=== PATIENT | female | born 2000 | race Caucasian/White ===

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

== ENCOUNTER 2020-02-06 20:19 | Emergency (ER) | payer OTHER, SELFPAY ==
[2020-02-06 20:23] VITALS: BP 128/78; PULSE 91; RESP 14; TEMP 37.1; O2SAT 99; BMI 21.4
--- NOTE | 2020-02-06 20:28 | DI.RAD.S_ITS ---
PROCEDURE: XR CHEST 1V INDICATIONS: Chest pain TECHNIQUE: One view of the chest was acquired. COMPARISON: None. FINDINGS: Surgical changes and devices: None. Lungs and pleura: Lungs are clear. No pleural effusions or pneumothorax. Mediastinum: Mediastinal contours appear normal. Heart size is normal. Bones and chest wall: No suspicious bony lesions. Overlying soft tissues appear unremarkable. IMPRESSION: No acute cardiopulmonary process demonstrated radiographically. Dictated by: Silvino Zaragoza M.D. on 02/06/2020 at 21:31 Approved by: Silvino Zaragoza M.D. on 02/06/2020 at 21:31
[2020-02-06 20:35] LABS: Add Manual Diff / Slide Review NO; Basophils Absolute Auto 0 /uL (0-100); Basophils Percent Auto 0.6 % (0-2); Eosinophils Absolute Auto 100 /uL (0-450); Eosinophils Percent Auto 1.1 % (2-4); Hematocrit 37.1 % (36-46); Hemoglobin 12.5 g/dL (12.0-16.0); Lymphocytes Absolute Auto 3300 /uL (1100-4500); Lymphocytes Percent Auto 41.1 % (25-40); Mean Corpuscular HGB Conc 33.6 % (30-36); Mean Corpuscular Hemoglobin 28.3 PG (26-34); Mean Corpuscular Volume 84.3 fL (80-100); Monocytes Absolute Auto 600 /uL (0-900); Monocytes Percent Auto 7.1 % (3-14); Neutrophils Absolute Auto 4100 /uL (1500-7000); Neutrophils Percent Auto 50.1 % (50-75); Platelet Count 291 X10^3/uL (150-400); Red Cell Distribution Width 12.6 % (11.6-14.8); White Blood Cell Count 8.1 X10^3/uL (4.5-11.0)
[2020-02-06 20:45] LABS: Prothrombin Time 11.3 SECONDS (10.1-12.7)
--- NOTE | 2020-02-06 20:46 | ED.CHESTPAIN ---
HPI - Chest Pain General Chief Complaint: Chest Pain Stated Complaint: CHEST PAIN, HEART PAIN, SOB Time Seen by Provider: 02/06/20 20:45 Source: patient Mode of arrival: Ambulatory Limitations: no limitations History of Present Illness HPI narrative: 19-year-old woman with medical history significant for oral contraceptives and anxiety with panic attacks presents with chest pain. The pain has been developing all day long. She does not describe any new physical activities that would have increased musculoskeletal pain. She 1st noticed it this morning when she woke up and by L this evening she found that it had moved from her right chest over to her left chest felt like significant pressure and then caused her significant anxiety which than exacerbated all of the symptoms and she comes in for further evaluation. Once in the emergency room she is much calmer, clearly no hyperventilation and no panic attack. She is feeling better and states that her chest pain currently is at 4/10 (at its max it was 9/10). She is not dyspneic, diaphoretic, experiencing any palpitations, no fevers or cough, no lower extremity edema. She has never experienced chest pain like this previously Related Data Home Medications Medication Instructions Recorded Confirmed desogestrel 0.15 mg-ethinyl 1 tab PO DAILY 11/16/19 11/16/19 estradiol 0.03 mg tablet Allergies Allergy/AdvReac Type Severity Reaction Status Date / Time No Known Drug Allergies Allergy Verified 02/06/20 20:28 Review of Systems Review of Systems Narrative: Pertinent positive and negative findings as per HPI Remainder of review of systems is otherwise unremarkable for Constitutional: Fevers, chills, weakness ENT: No sore throat, neck pain, ear pain GI: Nausea, vomiting, diarrhea, change in bowel habits, black or bloody stools : Dysuria, hematuria, flank pain MS: Muscle weakness, numbness, joint swelling or warmth Skin: Rashes, nonhealing lesions Neuro: Syncope, dizziness, tingling Patient History Medical History Anxiety (Acute) Social History Smoking Status: Never smoker Smoking Status: Never smoker alcohol intake frequency: holidays/special occasions only Substance Use Type: does not use Exam Narrative Exam Narrative: General: Healthy appearing, in no acute distress. Able to give a complete and coherent history. Well-nourished well-developed HEENT: Moist mucous membranes, normal sclera with reactive pupils, Neck: No cervical adenopathy, supple Respiratory: Lungs are clear to auscultation, no wheezing no rales no rhonchi. Full and symmetrical air movement Cardiac: Regular rate and rhythm no murmurs no bruits Chest: Tenderness along costochondral borders bilaterally with pain reproduced on lateral compression of the chest wall Abdomen: Soft nontender good bowel tones, no flank pain Skin: Warm and dry, no rashes Neurologic: Grossly neurologically intact with no obvious asymmetries or abnormalities Extremities: No trauma, well perfused Psych: Cooperative, appropriate insight and affect Initial Vital Signs Initial Vital Signs: Vital Signs Temperature 98.8 F 02/06/20 20:23 Pulse Rate 91 H 02/06/20 20:23 Respiratory Rate 14 02/06/20 20:23 Blood Pressure 128/78 02/06/20 20:23 Pulse Oximetry 99 02/06/20 20:23 Course Orders Ordered: ED Orders 02/06/20 20:20 Complete Blood Count AUTO DIFF Stat Comprehensive Metabolic Panel Stat Lipase Stat Partial Thromboplastin Time Stat Prothrombin Time INR Stat Troponin & CK Cardiac Panel Stat 02/06/20 20:28 XR chest 1V Stat EKG-12 Lead Stat Discontinued Medications Ketorolac Tromethamine (Toradol) 15 mg IV NOW ONE Stop: 02/06/20 21:03 Last Admin: 02/06/20 21:22 Dose: 15 mg Documented by: CASSIDY Vital Signs Vital signs: Vital Signs - 8 hr 02/06/20 20:23 02/06/20 22:14 Temperature 98.8 F Pulse Rate 91 H 83 Respiratory Rate 14 Blood Pressure 128/78 118/77 Pulse Oximetry 99 99 MDM - Chest Pain Lab Data Attestation: I reviewed the patient's lab results. Result diagrams: 02/06/20 20:20 02/06/20 20:20 Labs: Lab Results 02/06/20 02/06/20 02/06/20 Range/Units 20:20 20:20 20:20 WBC 8.1 (4.5-11.0) X10^3/uL RBC 4.40 (4.0-5.2) X10^6/uL Hgb 12.5 (12.0-16.0) g/dL Hct 37.1 (36-46) % MCV 84.3 (80-100) fL MCH 28.3 (26-34) PG MCHC 33.6 (30-36) % RDW 12.6 (11.6-14.8) % Plt Count 291 (150-400) X10^3/uL Neut % (Auto) 50.1 (50-75) % Lymph % (Auto) 41.1 H (25-40) % [place] % (Auto) 7.1 (3-14) % Eos % (Auto) 1.1 L (2-4) % Baso % (Auto) 0.6 (0-2) % Neut # (Auto) 4100 (0676-0021) /uL Lymph # (Auto) 3300 (3520-8530) /uL [place] # (Auto) 600 (0-900) /uL Eos # (Auto) 100 (0-450) /uL Baso # (Auto) 0 (0-100) /uL PT 11.3 (10.1-12.7) SECONDS INR 1.0 (0.9-1.3) APTT 30 (26.4-36.2) SECONDS Sodium 137 (137-145) mmol/L Potassium 3.4 (3.4-5.1) mmol/L Chloride 105 (98-107) mmol/L Carbon Dioxide 26 (22-32) mmol/L BUN 10 (7-17) mg/dL Creatinine 0.71 (0.52-1.04) mg/dL Estimated GFR > 60.0 (>60) mL/min BUN/Creatinine Ratio 14.1 (6-22) Glucose 92 (70-100) mg/dL Calcium 9.7 (8.4-10.2) mg/dL Total Bilirubin 0.4 (0.2-1.3) mg/dL AST 26 (14-36) IU/L ALT 14 (<35) IU/L Alkaline Phosphatase 61 (38-126) U/L Total Creatine Kinase 54 (30-135) U/L CK-MB (CK-2) TNP CK-MB (CK-2) Rel Index TNP Troponin I < 0.012 (0.01-0.034) ng/mL Total Protein 7.5 (6.3-8.2) g/dL Albumin 4.5 (3.5-5.0) g/dL Globulin 3.0 (1.7-4.1) g/dL Albumin/Globulin Ratio 1.5 (1.0-2.8) Lipase 153 (23-300) U/L Point of Care Testing Test Results Negative Urine Dip Bedside Urine Glucose Negative Bedside Urine Bilirubin - Negative Bedside Urine Ketone - Negative Urine Specific [place] 1.015 Bedside Urine Occult Blood - Negative Bedside Urine pH 6.0 Bedside Urine Protein - Negative Bedside Urine Urobilinogen - Negative Bedside Urine Nitrite - Negative Bedside Urine Leukocytes + 70 Esterase Imaging Data Chest x-ray: Radiologist's Impression: IMPRESSION: No acute cardiopulmonary process demonstrated radiographically. Dictated by: Silvino Zaragoza M.D. on 02/06/2020 at 21:31 ECG Data Attestation: I personally reviewed and interpreted this ECG as follows: Interpretation: Sinus rhythm at 79 Normal axis, normal intervals No acute STT wave changes, no ischemia MDM Narrative Medical decision making narrative: Pain entirely controlled with Toradol. Labs are reassuring no evidence of acute coronary syndrome, pulmonary embolism, infection, pneumothorax or other life-threatening issues for her chest pain today. We had a nice discussion regarding anxiety and panic attacks. She is safe for home discharge at this time Discharge Plan Departure Patient Disposition: Home Clinical Impression: Costalchondritis, Anxiety Instructions: DI for Costochondritis Activity Restrictions/Additional Instructions: Thank you for coming in today Your lab work x-ray and EKG today were all very reassuring. There is no evidence of any life-threatening issue to cause your chest pain. I suspect that you do have costal chondritis. This is inflammation of the joints where the ribs supervisor in circuit testing to the breast bone. That is right where your tender. Using 400 mg of ibuprofen (2 [id number] pills) and 1 Tylenol every 6 hours can be very helpful in controlling pain. I wish you the very best Prescriptions: No Action desogestrel-ethinyl estradiol [Isibloom] 0.15-0.03 mg tablet 1 tab PO DAILY RF: 0
[2020-02-06 20:48] LABS: PTT Partial Thromboplastin Tim 30 SECONDS (26.4-36.2)
[2020-02-06 20:49] LABS: Alanine Aminotransferase 14 IU/L (<35); Albumin 4.5 g/dL (3.5-5.0); Albumin Globulin Ratio 1.5 (1.0-2.8); Alkaline Phosphatase 61 U/L (38-126); Aspartate Aminotransferase 26 IU/L (14-36); BUN Creatinine Ratio 14.1 (6-22); Bilirubin Total 0.4 mg/dL (0.2-1.3); Blood Urea Nitrogen 10 mg/dL (7-17); Calcium 9.7 mg/dL (8.4-10.2); Carbon Dioxide 26 mmol/L (22-32); Chloride 105 mmol/L (98-107); Creatine Kinase 54 U/L (30-135); Estimated Glomerular Filt Rate > 60.0 mL/min (>60); Glucose 92 mg/dL (70-100); HEMOLYSIS < 15 (0-50); Lipase 153 U/L (23-300); Potassium 3.4 mmol/L (3.4-5.1); Sodium 137 mmol/L (137-145); Total Protein 7.5 g/dL (6.3-8.2)
[2020-02-06 21:01] LABS: Troponin I < 0.012 ng/mL (0.01-0.034)
[2020-02-06] MEDS: KETOROLAC 60 MG/2 ML VIAL 15 MG IV (21:22)
[2020-02-06 22:14] VITALS: BP 118/77; PULSE 83; O2SAT 99
== END 2020-02-06 22:51 | disposition home or self-care (01) ==
PROVIDERS: Emergency Provider Emergency Medicine
DX: M94.0 Chondrocostal junction syndrome [Tietze] (principal); F41.0 Panic disorder [episodic paroxysmal anxiety]; R07.9 Chest pain, unspecified
CPT/HCPCS: 36415; 71045; 80053; 81003; 81025; 82550; 83690; 84484; 85025; 85610; 85730; 93005; 96374; 99284; J1885

== ENCOUNTER 2020-02-18 12:39 | Emergency (ER) | payer OTHER, SELFPAY ==
[2020-02-18 12:44] VITALS: BP 119/83; PULSE 78; RESP 20; TEMP 37.1; O2SAT 100; BMI 21.4
--- NOTE | 2020-02-18 12:50 | DI.RAD.S_ITS ---
PROCEDURE: XR CHEST 1V INDICATIONS: syncope TECHNIQUE: One view of the chest was acquired. COMPARISON: [facility], CR, XR CHEST 1V, 02/06/2020, 21:16. FINDINGS: Surgical changes and devices: None. Lungs and pleura: Lungs are clear. No pleural effusions or pneumothorax. Mediastinum: Mediastinal contours appear normal. Heart size is normal. Bones and chest wall: No suspicious bony lesions. Overlying soft tissues appear unremarkable. IMPRESSION: No acute cardiopulmonary disease. Dictated by: Sofy Price M.D. on 02/18/2020 at 12:10 Approved by: Sofy Price M.D. on 02/18/2020 at 12:11
--- NOTE | 2020-02-18 12:55 | PC.NURSE ---
Patient brought in by EMS. Patient reports fainted twice while at work. Initial time witness by a customer at work, and second happened shortly after while sitting in a chair. Patient reports nausea and weakness prior to fainting and short loss of consciousness. Patient denies any injuries sustained. Patient reports chest pain, however states this is not a new finding and was recently seen in this ED and was diagnosed with costochondritis. Patient states her chest pain is the same as when she came in for this and denies new onset of chest pain. Patient affirms continued dizziness and nausea.
--- NOTE | 2020-02-18 12:57 | ED_ITS ---
HPI - Syncope <SUSAN Caldwell - Last Filed: 02/18/20 16:36> General Chief Complaint: Syncope Stated Complaint: syncope Time Seen by Provider: 02/18/20 12:42 Source: patient and EMS Mode of arrival: EMS Limitations: no limitations History of Present Illness HPI narrative: 19yo female with a history of anxiety presents to the emergency department for 2 episodes of syncope. 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 She was then helped to sit on a chair where she then passed out for a few seconds again. Patient denies having breakfast this morning, states she was not drinking very much water. Patient denies hitting her head, she denies any neck pain, vision changes, fevers, abdominal pain, vomiting, diarrhea, vaginal discharge blood in stool, or any other concerns. Patient states she was seen on 02/06/20 and diagnosed with costochondritis, she states she has the similar chest pain and feels short of breath when she takes a deep breath. Related Data Home Medications Medication Instructions Recorded Confirmed desogestrel 0.15 mg-ethinyl 1 tab PO DAILY 11/16/19 11/16/19 estradiol 0.03 mg tablet Allergies Allergy/AdvReac Type Severity Reaction Status Date / Time No Known Drug Allergies Allergy Verified 02/06/20 20:28 Review of Systems <SUSAN Caldwell - Last Filed: 02/18/20 16:36> Review of Systems Narrative: REVIEW OF SYSTEMS: GENERAL: Denies fever or chills. HENT: No head trauma. EYES: No vision changes. CARDIOVASCULAR: No chest pain. Reports syncope, see HPI. RESPIRATORY: No shortness of breath or cough. GASTROINTESTINAL: No nausea, vomiting, diarrhea, or constipation. GENITOURINARY: No flank pain or dysuria. MUSCULOSKELETAL: No pain, weakness, or deformities. INTEGUMENTARY: No rash, lesions, or pruritus. NEURO: No numbness or tingling. PSYCH: No behavior or mood changes. Patient History <SUSAN Caldwell - Last Filed: 02/18/20 16:36> Medical History Anxiety (Acute) Social History Smoking Status: Never smoker Smoking Status: Never smoker alcohol intake frequency: holidays/special occasions only Substance Use Type: does not use Exam <SUSAN Caldwell - Last Filed: 02/18/20 16:36> Initial Vital Signs Initial Vital Signs: Vital Signs Temperature 98.7 F 02/18/20 12:44 Pulse Rate 78 02/18/20 12:44 Respiratory Rate 02/18/20 12:44 Blood Pressure 119/83 02/18/20 12:44 Pulse Oximetry 100 02/18/20 12:44 HYSICAL EXAMINATION: GENERAL: Well groomed, alert, and cooperative. Answers questions promptly and appropriately. Vital signs noted. HENT: Normocephalic, atraumatic. Ear canals patent. Oral mucosa is pink and moist. EYES: Conjunctiva pink, sclera white, no periorbital swelling. CHEST: Pain with palpation to costal-sternal borders. CARDIOVASCULAR: S1 and S2 sounds normal. Regular rate and rhythm, no murmurs, clicks, or bruits. No pedal edema. RESPIRATORY: Normal respiratory rate, trachea midline, airway patent. No stridor, nasal flaring or accessory muscle use. Lungs are clear in all [place] without wheeze, rhonchi, or crackles. GASTROINTESTINAL: Bowel sounds normoactive. Abdomen is soft and non-tender. No organomegaly. MUSCULOSKELETAL: Normal gait and coordination. Equal tone and mass bilaterally. EXTREMITIES: CMS intact. Moves all extremities. SKIN: Warm, dry, soft, appropriate color for ethnicity. No lesions, rashes, or wounds. NEURO: Alert and Oriented X 3. Good coordination. No ataxia, or sensory deficits, or cognitive issues. PSYCH: Appropriate affect and mood. <Reece Perez MD - Last Filed: 02/18/20 18:50> Initial Vital Signs Initial Vital Signs: Vital Signs Temperature 98.7 F 02/18/20 12:44 Pulse Rate 78 02/18/20 12:44 Respiratory Rate 02/18/20 12:44 Blood Pressure 119/83 02/18/20 12:44 Pulse Oximetry 100 02/18/20 12:44 Course <SUSAN Caldwell - Last Filed: 02/18/20 16:36> Course Course Narrative: Patient was given fluids, food, and water, states she is feeling much better and like to go home. Patient was able to walk around the department without feelings of syncope or lightheadedness. Orders Ordered: ED Orders 02/18/20 12:40 Complete Blood Count AUTO DIFF Stat Comprehensive Metabolic Panel Stat Troponin & CK Cardiac Panel Stat 02/18/20 12:50 XR chest 1V Stat EKG-12 Lead Stat 02/18/20 13:42 Urine Culture Stat Urine Microscopic Stat 02/18/20 14:34 EKG-12 Lead Routine Discontinued Medications Sodium Chloride (Normal Saline 0.9%) 1,000 mls @ 1,000 mls/hr IV BOLUS ONE Stop: 02/18/20 13:49 Last Infusion: 02/18/20 15:08 Dose: 1,000 mls/hr Documented by: Admin: 02/18/20 13:06 Dose: 1,000 mls/hr Documented by: YARED Ondansetron HCl (Zofran) 4 mg IV NOW ONE Stop: 02/18/20 12:51 Last Admin: 02/18/20 13:06 Dose: 4 mg Documented by: YARED Consultations Consultation #1: Patient staffed with Dr. Perez, discussed test, test results, plan of care. Vital Signs Vital signs: Vital Signs - 8 hr 02/18/20 12:44 02/18/20 13:30 02/18/20 15:10 Temperature 98.7 F Pulse Rate 78 74 87 Respiratory Rate 20 17 16 Blood Pressure 119/83 117/80 110/67 Pulse Oximetry 100 99 100 <Reece Perez MD - Last Filed: 02/18/20 18:50> Orders Ordered: ED Orders 02/18/20 12:40 Complete Blood Count AUTO DIFF Stat Comprehensive Metabolic Panel Stat Troponin & CK Cardiac Panel Stat 02/18/20 12:50 XR chest 1V Stat EKG-12 Lead Stat 02/18/20 13:42 Urine Culture Stat Urine Microscopic Stat 02/18/20 14:34 EKG-12 Lead Routine Discontinued Medications Sodium Chloride (Normal Saline 0.9%) 1,000 mls @ 1,000 mls/hr IV BOLUS ONE Stop: 02/18/20 13:49 Last Infusion: 02/18/20 15:08 Dose: 1,000 mls/hr Documented by: Admin: 02/18/20 13:06 Dose: 1,000 mls/hr Documented by: YARED Ondansetron HCl (Zofran) 4 mg IV NOW ONE Stop: 02/18/20 12:51 Last Admin: 02/18/20 13:06 Dose: 4 mg Documented by: YARED Vital Signs Vital signs: Vital Signs - 8 hr 02/18/20 12:44 02/18/20 13:30 02/18/20 15:10 Temperature 98.7 F Pulse Rate 78 74 87 Respiratory Rate 20 17 16 Blood Pressure 119/83 117/80 110/67 Pulse Oximetry 100 99 100 MDM - Syncope <SUSAN Caldwell - Last Filed: 02/18/20 16:36> Medical Records Attestation: I reviewed the patient's medical records. Lab Data Attestation: I reviewed the patient's lab results. Result diagrams: 02/18/20 12:40 02/18/20 12:40 Labs: Lab Results 02/18/20 02/18/20 02/18/20 Range/Units 12:40 12:40 13:42 WBC 6.8 (4.5-11.0) X10^3/uL RBC 4.60 (4.0-5.2) X10^6/uL Hgb 12.7 (12.0-16.0) g/dL Hct 38.5 (36-46) % MCV 83.7 (80-100) fL MCH 27.6 (26-34) PG MCHC 33.0 (30-36) % RDW 12.7 (11.6-14.8) % Plt Count 276 (150-400) X10^3/uL Neut % (Auto) 50.0 (50-75) % Lymph % (Auto) 41.3 H (25-40) % [place] % (Auto) 6.6 (3-14) % Eos % (Auto) 1.7 L (2-4) % Baso % (Auto) 0.4 (0-2) % Neut # (Auto) 3400 (0576-0701) /uL Lymph # (Auto) 2800 (1262-7570) /uL [place] # (Auto) 400 (0-900) /uL Eos # (Auto) 100 (0-450) /uL Baso # (Auto) 0 (0-100) /uL Sodium 138 (137-145) mmol/L Potassium 3.6 (3.4-5.1) mmol/L Chloride 103 (98-107) mmol/L Carbon Dioxide 26 (22-32) mmol/L BUN 12 (7-17) mg/dL Creatinine 0.74 (0.52-1.04) mg/dL Estimated GFR > 60.0 (>60) mL/min BUN/Creatinine Ratio 16.2 (6-22) Glucose 80 (70-100) mg/dL Calcium 10.0 (8.4-10.2) mg/dL Total Bilirubin 0.6 (0.2-1.3) mg/dL AST 26 (14-36) IU/L ALT 14 (<35) IU/L Alkaline Phosphatase 72 (38-126) U/L Total Creatine Kinase 46 (30-135) U/L CK-MB (CK-2) TNP CK-MB (CK-2) Rel Index TNP Troponin I < 0.012 (0.01-0.034) ng/mL Total Protein 8.0 (6.3-8.2) g/dL Albumin 4.6 (3.5-5.0) g/dL Globulin 3.4 (1.7-4.1) g/dL Albumin/Globulin Ratio 1.4 (1.0-2.8) Urine RBC None seen (0-5/HPF) Urine WBC 0-1/hpf (0-5/HPF) Ur Squamous Epith Cells None seen (0-5/HPF) Urine Bacteria None seen (None) Ur Culture Indicated? Specimen cultured Point of Care Testing Test Results Negative Glucose POC 90 Urine Dip Bedside Urine Glucose Negative Bedside Urine Bilirubin - Negative Bedside Urine Ketone - Negative Urine Specific [place] 1.010 Bedside Urine Occult Blood - Negative Bedside Urine pH 6.0 Bedside Urine Protein - Negative Bedside Urine Urobilinogen - Negative Bedside Urine Nitrite - Negative Bedside Urine Leukocytes +/- 15 Esterase Imaging Data Chest x-ray: Radiologist's Impression: [address] [address] XRay Report Signed Patient: Valeria Kidd [facility]#: [id number] : 2000Acct:[id number] Age/Sex: 19 FDate of Service: 02/18/20 Loc: ED Accession Number: [id number] Procedure: XR chest 1V Ordering Provider: Shanon Flores PROCEDURE: XR CHEST 1V INDICATIONS: syncope TECHNIQUE: One view of the chest was acquired. COMPARISON: [facility], CR, XR CHEST 1V, 02/06/2020, 21:16. FINDINGS: Surgical changes and devices: None. Lungs and pleura: Lungs are clear. No pleural effusions or pneumothorax. Mediastinum: Mediastinal contours appear normal. Heart size is normal. Bones and chest wall: No suspicious bony lesions. Overlying soft tissues ap pear unremarkable. IMPRESSION: No acute cardiopulmonary disease. Dictated by: Sofy Price M.D. on 02/18/2020 at 12:10 Approved by: Sofy Price M.D. on 02/18/2020 at 12:11 ECG Data Interpretation: 1245: Normal sinus rhythm, rate 79, NC interval 134, QTC 435. No ST elevation or ST depression. No ectopy. T-wave inversion noted in V4. EKG viewed by Dr. Perez per protocol. 1434: Normal sinus rhythm, rate 72, NC interval 127, QTC 424. No ST elevation or ST depression. No ectopy. T-wave inversion noted in V4. EKG viewed by Dr. Perez per protocol. Some results from prior EKG in 01/2020. MDM Narrative Medical decision making narrative: 19-year-old female presents to the emergency department for few episodes syncope. Less likely cardiac given troponin negative, no reports of chest pain other than her known costochondritis, EKG non-remarkable without acute findings. Chest x- ray negative for concerning findings. No known cardiac arrhythmias, no reports of palpitations prior to syncope. Less likely abdominal etiology given lack of tenderness on examination, laboratory work within normal limits. I suspect this may be due to a combination of anxiety (patient reports significant anxiety), not eating this morning, and lack of dehydration as entire workup was negative, patient stated she felt much better after drinking water, IV fluids, and having a snack. [place] syncope risk score = -3, risk of additional syncopal episode is very. She was encouraged to drink plenty of fluid and eat frequent snacks. Return precautions given for new or worsening symptoms. Patient agreed to plan of care verbalized understanding. <Reece Perez MD - Last Filed: 02/18/20 18:50> Lab Data Labs: Lab Results 02/18/20 02/18/20 02/18/20 Range/Units 12:40 12:40 13:42 WBC 6.8 (4.5-11.0) X10^3/uL RBC 4.60 (4.0-5.2) X10^6/uL Hgb 12.7 (12.0-16.0) g/dL Hct 38.5 (36-46) % MCV 83.7 (80-100) fL MCH 27.6 (26-34) PG MCHC 33.0 (30-36) % RDW 12.7 (11.6-14.8) % Plt Count 276 (150-400) X10^3/uL Neut % (Auto) 50.0 (50-75) % Lymph % (Auto) 41.3 H (25-40) % [place] % (Auto) 6.6 (3-14) % Eos % (Auto) 1.7 L (2-4) % Baso % (Auto) 0.4 (0-2) % Neut # (Auto) 3400 (6181-2054) /uL Lymph # (Auto) 2800 (3502-3947) /uL [place] # (Auto) 400 (0-900) /uL Eos # (Auto) 100 (0-450) /uL Baso # (Auto) 0 (0-100) /uL Sodium 138 (137-145) mmol/L Potassium 3.6 (3.4-5.1) mmol/L Chloride 103 (98-107) mmol/L Carbon Dioxide 26 (22-32) mmol/L BUN 12 (7-17) mg/dL Creatinine 0.74 (0.52-1.04) mg/dL Estimated GFR > 60.0 (>60) mL/min BUN/Creatinine Ratio 16.2 (6-22) Glucose 80 (70-100) mg/dL Calcium 10.0 (8.4-10.2) mg/dL Total Bilirubin 0.6 (0.2-1.3) mg/dL AST 26 (14-36) IU/L ALT 14 (<35) IU/L Alkaline Phosphatase 72 (38-126) U/L Total Creatine Kinase 46 (30-135) U/L CK-MB (CK-2) TNP CK-MB (CK-2) Rel Index TNP Troponin I < 0.012 (0.01-0.034) ng/mL Total Protein 8.0 (6.3-8.2) g/dL Albumin 4.6 (3.5-5.0) g/dL Globulin 3.4 (1.7-4.1) g/dL Albumin/Globulin Ratio 1.4 (1.0-2.8) Urine RBC None seen (0-5/HPF) Urine WBC 0-1/hpf (0-5/HPF) Ur Squamous Epith Cells None seen (0-5/HPF) Urine Bacteria None seen (None) Ur Culture Indicated? Specimen cultured Point of Care Testing Test Results Negative Glucose POC 90 Urine Dip Bedside Urine Glucose Negative Bedside Urine Bilirubin - Negative Bedside Urine Ketone - Negative Urine Specific [place] 1.010 Bedside Urine Occult Blood - Negative Bedside Urine pH 6.0 Bedside Urine Protein - Negative Bedside Urine Urobilinogen - Negative Bedside Urine Nitrite - Negative Bedside Urine Leukocytes +/- 15 Esterase Discharge Plan Departure Patient Disposition: Home Clinical Impression: Syncope Qualifiers: Syncope type: unspecified Qualified Code(s): R55 - Syncope and collapse Discharge Date/Time: 02/18/20 15:10 Instructions: DI for Syncope in Adults (Fainting), Fainting, DI for Anxiety -- Adult Activity Restrictions/Additional Instructions: Thank you for entrusting me with your care today. As discussed, your chest x- ray, laboratory work, in urinary non-remarkable. There is a very slight difference in your EKG from prior visit which may be due to placement of weight EKG leads. I am unsure the exact cause of your syncope, it may be related to dehydration, not eating enough in the morning, heat, and/or anxiety. Please follow-up with your primary care provider in the next few weeks for further evaluation. Return emergency department for any new or worsening symptoms such as seizures, high fevers, uncontrollable vomiting, syncope, or any other concerns. Prescriptions: No Action desogestrel-ethinyl estradiol [Isibloom] 0.15-0.03 mg tablet 1 tab PO DAILY RF: 0
[2020-02-18 12:59] LABS: Add Manual Diff / Slide Review NO; Basophils Absolute Auto 0 /uL (0-100); Basophils Percent Auto 0.4 % (0-2); Eosinophils Absolute Auto 100 /uL (0-450); Eosinophils Percent Auto 1.7 % (2-4); Hematocrit 38.5 % (36-46); Hemoglobin 12.7 g/dL (12.0-16.0); Lymphocytes Absolute Auto 2800 /uL (1100-4500); Lymphocytes Percent Auto 41.3 % (25-40); Mean Corpuscular Hemoglobin 27.6 PG (26-34); Mean Corpuscular Volume 83.7 fL (80-100); Monocytes Absolute Auto 400 /uL (0-900); Monocytes Percent Auto 6.6 % (3-14); Neutrophils Absolute Auto 3400 /uL (1500-7000); Platelet Count 276 X10^3/uL (150-400); Red Cell Distribution Width 12.7 % (11.6-14.8); White Blood Cell Count 6.8 X10^3/uL (4.5-11.0)
[2020-02-18 13:04] LABS: Alanine Aminotransferase 14 IU/L (<35); Albumin 4.6 g/dL (3.5-5.0); Albumin Globulin Ratio 1.4 (1.0-2.8); Alkaline Phosphatase 72 U/L (38-126); Aspartate Aminotransferase 26 IU/L (14-36); BUN Creatinine Ratio 16.2 (6-22); Bilirubin Total 0.6 mg/dL (0.2-1.3); Blood Urea Nitrogen 12 mg/dL (7-17); Carbon Dioxide 26 mmol/L (22-32); Chloride 103 mmol/L (98-107); Creatine Kinase 46 U/L (30-135); Estimated Glomerular Filt Rate > 60.0 mL/min (>60); Globulin 3.4 g/dL (1.7-4.1); Glucose 80 mg/dL (70-100); HEMOLYSIS < 15 (0-50); Potassium 3.6 mmol/L (3.4-5.1); Sodium 138 mmol/L (137-145)
[2020-02-18] MEDS: SODIUM CHLORIDE 0.9% 1,000 ML 1000 ML IV (13:06)
[2020-02-18] MEDS: ONDANSETRON 4 MG/2 ML INJ IV (13:06)
[2020-02-18 13:16] LABS: Troponin I < 0.012 ng/mL (0.01-0.034)
[2020-02-18 13:30] VITALS: BP 117/80; PULSE 74; RESP 17; O2SAT 99
[2020-02-18 13:52] LABS: Bacteria Urine None Seen; RBC Urine None Seen (0-5/HPF)
[2020-02-18 14:14] LABS: Culture Indicated Urine Specimen Cultured; Squamous Epithelial Cell Urine None Seen (0-5/HPF); WBC Urine 0-1/HPF (0-5/HPF)
--- NOTE | 2020-02-18 14:27 | PC.NURSE ---
Patient given melania crackers and reports feeling much better. Denies any nausea or difficulty/distress from eating.
[2020-02-18 15:10] VITALS: BP 110/67; PULSE 87; RESP 16; O2SAT 100
== END 2020-02-18 15:10 | disposition home or self-care (01) ==
PROVIDERS: Emergency Provider Nurse Practitioner
DX: R55 Syncope and collapse (principal)
CPT/HCPCS: 36415; 71045; 80053; 81003; 81015; 81025; 82550; 82962; 84484; 85025; 87086; 93005; 96361; 96374; 99284; J2405

== ENCOUNTER → 2020-05-31 17:39 | Outpatient (CLI) | payer OTHER, SELFPAY ==
--- NOTE | 2020-05-31 17:41 | DI.MRI.S_ITS ---
PROCEDURE: MR FOOT RT WO CON INDICATIONS: PAIN IN RIGHT TOES TECHNIQUE: Noncontrast sagittal T1 spin echo and T2 fast spin echo with fat saturation, long-axis T1 spin echo and T2 fast spin echo with fat saturation, short-axis T1 spin echo and T2 fast spin echo with fat saturation through the forefoot. COMPARISON: None. FINDINGS: Image quality: Excellent. Bones and joints: No bone marrow contusions or metatarsal stress fractures. The sesamoid bones appear in expected positions, without internal edema. No metatarsophalangeal joint degeneration. No intraosseous lesions. Soft tissues: Focal area of T1 and T2 hyperintense signal within superficial soft tissue along plantar aspect of lateral 1st toe at the level of distal 1st proximal phalangeal shaft is seen. No other area of soft tissue signal abnormality is noted. The visualized plantar foot muscles demonstrate normal signal and bulk. Visualized flexor and extensor tendons appear intact, without tenosynovitis. The distal insertions of the peroneus brevis and longus tendons appear intact. The principal Lisfranc ligament appears intact. Sagittal images demonstrate no evidence for plantar plate tears. IMPRESSION: 1. Focal tiny T1 and T2 hyperintense signal involving superficial plantar soft tissue at the level of lateral aspect of distal 1st proximal phalangeal shaft, which could represent tiny foreign body in this area versus artifacts, suggest clinical correlation. Ultrasound of soft tissue can be done for further evaluation if indicated. 2. No other area of soft tissue or muscle signal abnormality is seen. No discrete drainable fluid collection is identified. 3. No marrow signal abnormality. No fracture or dislocation. No suspicious intraosseous lesion. Dictated by: Oneil Medrano M.D. on 06/03/2020 at 9:22 Approved by: Oneil Medrano M.D. on 06/03/2020 at 9:36
== END ==
PROVIDERS: Referring Provider Podiatrist; Visit Provider Podiatrist
DX: M79.674 Pain in right toe(s) (principal); R22.9 Localized swelling, mass and lump, unspecified
CPT/HCPCS: 73718

== ENCOUNTER 2021-07-16 13:59 | Emergency (ER) | payer OTHER, SELFPAY ==
[2021-07-16 14:12] VITALS: BP 111/71; PULSE 74; RESP 16; TEMP 36.4; O2SAT 98
[2021-07-16 14:53] LABS: Add Manual Diff / Slide Review NO; Basophils Absolute Auto 0 /uL (0-100); Basophils Percent Auto 0.5 % (0-2); Eosinophils Absolute Auto 100 /uL (0-450); Eosinophils Percent Auto 1.5 % (2-4); Hematocrit 39.1 % (36-46); Hemoglobin 13.1 g/dL (12.0-16.0); Lymphocytes Absolute Auto 2500 /uL (1100-4500); Lymphocytes Percent Auto 34.7 % (25-40); Mean Corpuscular HGB Conc 33.5 % (30-36); Mean Corpuscular Hemoglobin 28.1 PG (26-34); Monocytes Absolute Auto 600 /uL (0-900); Monocytes Percent Auto 8.1 % (3-14); Neutrophils Absolute Auto 3900 /uL (1500-7000); Neutrophils Percent Auto 55.2 % (50-75); Platelet Count 275 X10^3/uL (150-400); Red Blood Cell Count 4.65 X10^6/uL (4.0-5.2); Red Cell Distribution Width 12.7 % (11.6-14.8); White Blood Cell Count 7.2 X10^3/uL (4.5-11.0)
[2021-07-16 15:05] LABS: Acetaminophen < 10 ug/mL (10-30); Alanine Aminotransferase 22 IU/L (<35); Albumin 4.7 g/dL (3.5-5.0); Albumin Globulin Ratio 1.3 (1.0-2.8); Alkaline Phosphatase 82 U/L (38-126); Aspartate Aminotransferase 29 IU/L (14-36); BUN Creatinine Ratio 19.5 (6-22); Bilirubin Total 0.8 mg/dL (0.2-1.3); Blood Urea Nitrogen 15 mg/dL (7-17); Carbon Dioxide 30 mmol/L (22-32); Chloride 102 mmol/L (98-107); Estimated Glomerular Filt Rate > 60.0 mL/min (>60); Ethanol (ETOH) < 10 mg/dL; Globulin 3.5 g/dL (1.7-4.1); Glucose 94 mg/dL (70-100); HEMOLYSIS < 15 (0-50); Potassium 4.5 mmol/L (3.4-5.1); Salicylate < 1.0 mg/dL (<20); Sodium 137 mmol/L (137-145); Total Protein 8.2 g/dL (6.3-8.2)
--- NOTE | 2021-07-16 15:24 | ED_ITS ---
HPI - Psych <SUSAN Pedraza - Last Filed: 07/16/21 21:10> General Chief Complaint: Psychiatric Symptoms Stated Complaint: having suicidal thoughts, Time Seen by Provider: 07/16/21 14:57 Source: patient Mode of arrival: Ambulatory History of Present Illness HPI Narrative: 21-year-old female presents to the emergency department with her complaining of increased stress in life, feeling despair, concern for suicidality and seeking resources for feelings of depression and stress. Patient denies active suicidal ideation, she denies any history of mental illness, she denies feeling homicidal or having any homicidal intent, she also denies any audiovisual hallucinations. Patient is interested in seeing a counselor, [place] so she has seen a primary care provider but is not currently under the care of 1. She does not take any medications, she is not on any control this time either. Patient denies any physical complaint or symptom. She has not tried to hurt herself and she does not have any self-harm intent. She endorses feeling anxious and depressed but these feelings are transient. Related Data Home Medications Medication Instructions Recorded Confirmed desogestrel 0.15 mg-ethinyl 1 tab PO DAILY 11/16/19 11/16/19 estradiol 0.03 mg tablet (Isibloom) Allergies Allergy/AdvReac Type Severity Reaction Status Date / Time No Known Drug Allergies Allergy Verified 02/06/20 20:28 Review of Systems <SUSAN Pedraza - Last Filed: 07/16/21 21:10> Review of Systems Narrative: General: denies fever, chills Head/Neck: denies headache, neck pain Eyes: denies visual changes, eye pain Cardio: denies chest pain, palpitations Respiratory: denies shortness of breath, cough GI: denies abdominal pain, nausea, vomiting, or diarrhea : denies dysuria, hematuria MSK: denies joint pain, muscle weakness Skin: denies rash, itching Neuro: denies numbness, tingling Patient History <SUSAN Pedraza - Last Filed: 07/16/21 21:10> Medical History (Updated 07/16/21 @ 16:03 by SUSAN Pedraza) Anxiety Social History Smoking Status: Never smoker Smoking Status: Never smoker alcohol intake frequency: holidays/special occasions only Substance Use Type: does not use Exam <SUSAN Pedraza - Last Filed: 07/16/21 21:10> Narrative Exam Narrative: Independently reviewed vitals signs and nursing notes. General: Awake, alert, nontoxic, no cardiorespiratory distress Head/Neck: Atraumatic, neck full range of motion Eyes: EOMI, conjunctiva normal Nose: nares patent, no rhinorrhea Mouth/Throat: moist mucus membranes, posterior pharynx normal, no oral lesions Cardio: Regular rate and rhythm, no peripheral edema Respiratory: respirations unlabored without wheezing, stridor, or rales. No retractions. GI: Abdomen soft, nontender MSK: Moves all extremities, neurovascularly intact Skin: Normal capillary refill, no rash Neuro: Normal speech and cognition, normal gait Initial Vital Signs Initial Vital Signs: Vital Signs Temperature 97.5 F L 07/16/21 14:12 Pulse Rate 74 07/16/21 14:12 Respiratory Rate 16 07/16/21 14:12 Blood Pressure 111/71 07/16/21 14:12 Pulse Oximetry 98 07/16/21 14:12 <Fidel Fraire DO - Last Filed: 07/24/21 04:48> Initial Vital Signs Initial Vital Signs: Vital Signs Temperature 97.5 F L 07/16/21 14:12 Pulse Rate 74 07/16/21 14:12 Respiratory Rate 16 07/16/21 14:12 Blood Pressure 111/71 07/16/21 14:12 Pulse Oximetry 98 07/16/21 14:12 Course <SUSAN Pedraza - Last Filed: 07/16/21 21:10> Orders Ordered: ED Orders 07/16/21 14:25 [place] [facility] [place] Tender Stat 07/16/21 14:35 Consult to [facility] - Grout Machine Tender Stat 07/16/21 14:46 Acetaminophen Stat Complete Blood Count AUTO DIFF Stat Comprehensive Metabolic Panel Stat Ethanol (ETOH) Stat Free T4, Direct Thyroxine Stat Salicylate Stat Thyroid Stimulating Hormone Stat Consultations Consultation #1: Kay from social Work has seen the patient and provided counseling resources and other mental health resources for the patient. We both feel confident in her safety to discharge home with her . Patient reports that her is her safe place in her comfort zone, they are choosing to go through hard times together, and their relationship is strong. Vital Signs Vital signs: Vital Signs - 8 hr 07/16/21 14:12 07/16/21 16:20 Temperature 97.5 F L Pulse Rate 74 81 Respiratory Rate 16 16 Blood Pressure 111/71 111/74 Pulse Oximetry 98 100 <Fidel Fraire DO - Last Filed: 07/24/21 04:48> Orders Ordered: ED Orders 07/16/21 14:25 Consult to [facility] [facility]out Machine Tender Stat 07/16/21 14:35 Consult to [facility] [place]out Machine Tender Stat 07/16/21 14:46 Acetaminophen Stat Complete Blood Count AUTO DIFF Stat Comprehensive Metabolic Panel Stat Ethanol (ETOH) Stat Free T4, Direct Thyroxine Stat Salicylate Stat Thyroid Stimulating Hormone Stat Vital Signs Vital signs: Vital Signs - 8 hr 07/16/21 14:12 07/16/21 16:20 Temperature 97.5 F L Pulse Rate 74 81 Respiratory Rate 16 16 Blood Pressure 111/71 111/74 Pulse Oximetry 98 100 MDM - Psych <SUSAN Pedraza - Last Filed: 07/16/21 21:10> Lab Data Result diagrams: 07/16/21 14:46 07/16/21 14:46 Labs: Lab Results 07/16/21 07/16/21 07/16/21 Range/Units 14:46 14:46 14:46 WBC 7.2 (4.5-11.0) X10^3/uL RBC 4.65 (4.0-5.2) X10^6/uL Hgb 13.1 (12.0-16.0) g/dL Hct 39.1 (36-46) % MCV 84.0 (80-100) fL MCH 28.1 (26-34) PG MCHC 33.5 (30-36) % RDW 12.7 (11.6-14.8) % Plt Count 275 (150-400) X10^3/uL Neut % (Auto) 55.2 (50-75) % Lymph % (Auto) 34.7 (25-40) % [place] % (Auto) 8.1 (3-14) % Eos % (Auto) 1.5 L (2-4) % Baso % (Auto) 0.5 (0-2) % Neut # (Auto) 3900 (2885-7196) /uL Lymph # (Auto) 2500 (8853-8940) /uL [place] # (Auto) 600 (0-900) /uL Eos # (Auto) 100 (0-450) /uL Baso # (Auto) 0 (0-100) /uL Sodium 137 (137-145) mmol/L Potassium 4.5 (3.4-5.1) mmol/L Chloride 102 (98-107) mmol/L Carbon Dioxide 30 (22-32) mmol/L BUN 15 (7-17) mg/dL Creatinine 0.77 (0.52-1.04) mg/dL Estimated GFR > 60.0 (>60) mL/min BUN/Creatinine Ratio 19.5 (6-22) Glucose 94 (70-100) mg/dL Calcium 10.0 (8.4-10.2) mg/dL Total Bilirubin 0.8 (0.2-1.3) mg/dL AST 29 (14-36) IU/L ALT 22 (<35) IU/L Alkaline Phosphatase 82 (38-126) U/L Total Protein 8.2 (6.3-8.2) g/dL Albumin 4.7 (3.5-5.0) g/dL Globulin 3.5 (1.7-4.1) g/dL Albumin/Globulin Ratio 1.3 (1.0-2.8) TSH 1.10 (0.47-4.68) uIU/mL Free T4 1.00 (0.78-2.19) ng/dL Salicylates < 1.0 (<20) mg/dL Acetaminophen < 10 L (10-30) ug/mL Ethyl Alcohol < 10 ( - 10) mg/dL Point of Care Testing Test Results Negative Urine Dip Bedside Urine Glucose Negative Bedside Urine Bilirubin - Negative Bedside Urine Ketone - Negative Urine Specific [place] 1.015 Bedside Urine Occult Blood - Negative Bedside Urine pH 6.0 Bedside Urine Protein - Negative Bedside Urine Urobilinogen - Negative Bedside Urine Nitrite - Negative Bedside Urine Leukocytes - Negative Esterase MDM Narrative Medical decision making narrative: 21-year-old female presents to the emergency department today for having suicidal thoughts, anxiety and depression related to an exacerbation of stress. Patient was seen by social work, and myself and is seeking resources for counseling, understands [place] care with [place] regular provider. She reports that she is interested in antidepressants if they will help her feeling of despair, and she will follow-up with them or return to the emergency department she has any worsening of these feelings before then. Patient is alert and oriented, not intoxicated, in my opinion has the capacity make decisions, patient expressed understanding of risks and benefits and declines wishing admission to inpatient psychiatrical care because she feels safe with her , and denies having any or intent for any self-harm, suicidal ideation, homicidal ideation. Kay from social Work provided resources and the patient was grateful for these and will follow up accordingly. Patient is appropriate and amenable to discharge home. Vital signs are stable on repeat examination is unremarkable. Patient has been informed of results. Patient has been given strict return to ER precautions for any new or worsening symptoms. Patient understands to follow up closely with outpatient providers as instructed. Patient understands plan and agrees to discharge home. All questions and concerns answered at this time. <Fidel Fraire, DO - Last Filed: 07/24/21 04:48> Lab Data Labs: Lab Results 07/16/21 07/16/21 07/16/21 Range/Units 14:46 14:46 14:46 WBC 7.2 (4.5-11.0) X10^3/uL RBC 4.65 (4.0-5.2) X10^6/uL Hgb 13.1 (12.0-16.0) g/dL Hct 39.1 (36-46) % MCV 84.0 (80-100) fL MCH 28.1 (26-34) PG MCHC 33.5 (30-36) % RDW 12.7 (11.6-14.8) % Plt Count 275 (150-400) X10^3/uL Neut % (Auto) 55.2 (50-75) % Lymph % (Auto) 34.7 (25-40) % [place] % (Auto) 8.1 (3-14) % Eos % (Auto) 1.5 L (2-4) % Baso % (Auto) 0.5 (0-2) % Neut # (Auto) 3900 (2204-0239) /uL Lymph # (Auto) 2500 (2729-4229) /uL [place] # (Auto) 600 (0-900) /uL Eos # (Auto) 100 (0-450) /uL Baso # (Auto) 0 (0-100) /uL Sodium 137 (137-145) mmol/L Potassium 4.5 (3.4-5.1) mmol/L Chloride 102 (98-107) mmol/L Carbon Dioxide 30 (22-32) mmol/L BUN 15 (7-17) mg/dL Creatinine 0.77 (0.52-1.04) mg/dL Estimated GFR > 60.0 (>60) mL/min BUN/Creatinine Ratio 19.5 (6-22) Glucose 94 (70-100) mg/dL Calcium 10.0 (8.4-10.2) mg/dL Total Bilirubin 0.8 (0.2-1.3) mg/dL AST 29 (14-36) IU/L ALT 22 (<35) IU/L Alkaline Phosphatase 82 (38-126) U/L Total Protein 8.2 (6.3-8.2) g/dL Albumin 4.7 (3.5-5.0) g/dL Globulin 3.5 (1.7-4.1) g/dL Albumin/Globulin Ratio 1.3 (1.0-2.8) TSH 1.10 (0.47-4.68) uIU/mL Free T4 1.00 (0.78-2.19) ng/dL Salicylates < 1.0 (<20) mg/dL Acetaminophen < 10 L (10-30) ug/mL Ethyl Alcohol < 10 ( - 10) mg/dL Point of Care Testing Test Results Negative Urine Dip Bedside Urine Glucose Negative Bedside Urine Bilirubin - Negative Bedside Urine Ketone - Negative Urine Specific [place] 1.015 Bedside Urine Occult Blood - Negative Bedside Urine pH 6.0 Bedside Urine Protein - Negative Bedside Urine Urobilinogen - Negative Bedside Urine Nitrite - Negative Bedside Urine Leukocytes - Negative Esterase Discharge Plan Departure Patient Disposition: Home Clinical Impression: Depression Instructions: Depression, DI for Suicidal Ideation-Adult Activity Restrictions/Additional Instructions: Thank you for reaching out today for help. As the 1st and heart a step. I hope that the resources warrant gave you will be helpful, we are always here for you if you have any exacerbation or any worsening of your feelings and feel unsafe. Please return to the emergency department if you feel like hurting herself or hurting others. Please establish care with a provider at the clinic that you been to before, discuss your symptoms and ask about starting a antidepressant/SSRI to see if that will help. Is a pleasure to meet you, there is light at the end of the tunnel, life definitely is a roller coaster, I hope that you start to feel better soon. *What to do: *Please continue to take your regular medications as directed. [ ] New medication prescriptions sent to your pharmacy: [ ] [ ] New medication written as a paper prescription [x ] No new medications given *Please follow up with your primary care provider in 2-3 days, call for an appointment. Let them know you were seen in the Emergency Department and that we ask that you be seen in follow up. We will electronically transmit a record of today's note if your PCP is in our system *If you do not have a primary care provider please contact the [facility] Resource line at [phone]. They will ask some questions about your medical history and help get you set up with a doctor in the community. *Return to Emergency Department if you should have any new, worsening or concerning symptoms, such as [fever greater than 101F, chills, worsening pain, persistent vomiting or other bothersome symptoms] Prescriptions: No Action desogestrel-ethinyl estradiol [Isibloom] 0.15-0.03 mg tablet 1 tab PO DAILY 0RF <Fidel Fraire DO - Last Filed: 07/24/21 04:48> Cosign ED Attending Lauraature Attestation: I was immediately available in the department for consultation. This documentation has been reviewed and I agree with assessment and plan. Supervised by Fidel Fraire DO
--- NOTE | 2021-07-16 16:14 | CM.SWNOTE ---
SOAPING DEPARTMENT SUPERVISOR Assessment SOAPING DEPARTMENT SUPERVISOR - Channel Process Plant Operator Assessment SOAPING DEPARTMENT SUPERVISOR/Channel Process Plant Operator Assessment Time Spent with Patient Start date 07/16/21 Visit Start Time 14:50 End date 07/16/21 Visit End Time 15:30 Total time Care Management spent on 40 patient visit-in minutes Mental Health Screening Include Onset, Duration, Intensity Presenting Problem Patient presents to ED with due to patient's MH breakdown yesterday and thoughts of SI with plan. Patient does not disclose plan to SOAPING DEPARTMENT SUPERVISOR but informs triage nurse. Precipitating Event(s) Patient endorses that she has struggled with anxiety most of her life and she is experiencing life stressers and away from friends and family while her is based in [place] in the [place]. Patient Strengths Patient has good insight, good support from and patient is seeking help. Current Behavioral Health Provider(s) No current providers, but Include Facility, Provider, Ph. # seeking provider. Patient's took patient to [facility] in [place] and it was reported that since patient is a dependent of an active duty member she cannot be seen at clinic and it is recommended that patient come to ED Psych. 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 Patient endorses occasionally social ETOH and THC use but denies use of other substances . Patient endorses that THC does not help with anxiety. Family Hx of Behavioral Abuse None reported Psychiatric Hospitalizations (date(s)/ No hx location) Psychosocial information & Support Patient is 21 y/o female who Systems resides in [place] with active duty . Patient endorses that family and friends live on the [facility] and so her main support is her . 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 Legal Concerns Legal Matters - Outstanding Issues None reported Mental Status Orientation (Person/Place/Time) A/Ox4 Stated Mood Anxious Affect (Congruent with Mood?) Anxious, full range, stable, congruent with mood Thought Content - Specify/Describe Patient denies visual and Obsessions, Delusions, Hallucinations auditory hallucinations. Patient endorses paranoia at times as she has witnessed occasions of when men were stalking her. Thought Processes (Qlfzmqc-Cvayfhhq-Fkjq coherent/circumstantial Dtxyydcs-Sbgaszkz-Abtooivwak- Rveczmgcmfjcfr-Guxfxjy-Lbcrwqsetqcp- Thought Blocking) Speech (Tcmvxv-Pddm-Dwadqat-Rapid-Soft- rapid/normal Loud-Pressured) Motor (Tfqize-Ulzjdromj-Kqsd-Other) Excessive, patient is rubbing hands back and forth due to anxiety. Insight (Rtbn-Doud-Wzim/Limited) good/fair Judgement (Fwjv-Mzqz-Azff/Limited) good/fair Impulse Control (Adequate-Impaired) adequate during assessment Memory (Fuhydmxqv-Vyuczi-Jmypbe, intact, not formally assessed Impaired-Intact) Concentration (Intact-Impaired) intact Attention (Intact-Impaired) intact Behavior (Appropriate-Inappropriate) appropriate Additional Comment patient is calm and communicative Risk Assessment Suicidal Ideation (Plan) Yes Homicidal Ideation (Plan) No Comment Patient denies HI. Patient endorses increasing SI in the last month. Patient states she had thoughts of SI with plan last night during MH breakdown but denies current SI. Patient does not want to inform SOAPING DEPARTMENT SUPERVISOR of her SI plans due to patient's anxiety. Patient informs triage nurse thoughts of OD on pills. Patient does not have any current prescriptions. Intervention Intervention SOAPING DEPARTMENT SUPERVISOR enters room. Present in room is patient and patient's . Patient endorses that she would like present. Patient endorses that she had a MH breakdown last evening and thoughts of SI. Patient and endorse [facility] and it was recommended that patient go to ED. Patient endorses ongoing anxiety throughout her life that impacts her sleep and eating habits. When asked about hopefulness for the future, patient could not confirm yes or no. Patient lists several activities that bring her ayden and states that her is her biggest support. Patient denies current SI. SOAPING DEPARTMENT SUPERVISOR discusses inpatient hospitalization and patient denies this plan as it would cause more harm to be a part from her . Patient endorses that she is interested in seeking a outpatient provider. SOAPING DEPARTMENT SUPERVISOR provides patient with crisis contacts and MH providers that accept patient' s insurance. Patient contracts for safety with and endorses that he will monitor patient and bring patient to the ED if symptoms worsen. It is the opinion of this SOAPING DEPARTMENT SUPERVISOR that patient is safe to d/c to home with . agrees to monitor patient for safety. Patient to seek MH counselor and utilize supports and crisis contacts. ED provider recommends that patient seek f/u appt with PCP as well. SOAPING DEPARTMENT SUPERVISOR reviews the above with ED provider who indicates agreement and understanding. Plan RA Plan Patient to d/c to home with , seek MH outpatient providers, utilize supports and to monitor patient for safety. LOIS Duran
[2021-07-16 16:20] VITALS: BP 111/74; PULSE 81; RESP 16; O2SAT 100
== END 2021-07-16 16:20 | disposition home or self-care (01) ==
PROVIDERS: Emergency Medicine; Emergency Provider Nurse Practitioner Critical Care Medicine
DX: F32.A Depression, unspecified (principal)
CPT/HCPCS: 36415; 80053; 80320; 80329; 81003; 81025; 84439; 84443; 85025; 99283; G0480

== ENCOUNTER 2021-10-31 02:09 | Emergency (ER) | payer OTHER, SELFPAY ==
[2021-10-31 02:24] VITALS: BP 118/73; PULSE 76; RESP 17; TEMP 36.9; O2SAT 99; BMI 23.4
--- NOTE | 2021-10-31 02:30 | PC.NURSE ---
c/o old blood states she has been having that since she started back on her bcp but tonight it seemed like it was her urine that had the blood in it
--- NOTE | 2021-10-31 02:46 | ED_ITS ---
HPI - General Adult General Chief complaint: Urogenital-Female Stated complaint: PEEING BLACK Time Seen by Provider: 10/31/21 02:26 Source: patient Mode of arrival: Ambulatory History of Present Illness HPI narrative: Patient is a 21-year-old female here for evaluation of dark vaginal discharge and which she initially thought was dark colored urine. Over the past couple days she has noticed that when she was wiping after urinating there was a small amount of black discharge on the toilet paper. She does have a history of PCOS. Is on control. Her last menstrual cycle was a week and a half ago. She is having some lower abdominal cramping with this is not new for her. She has had irregular menstrual cycles in the past but that has been when she is off of control and since she is currently on control they are from regular for her. She denies any urinary symptoms to include frequency or urgency. No change in bowel habits. No fevers. Related Data Home Medications Medication Instructions Recorded Confirmed desogestrel 0.15 mg-ethinyl 1 tab PO DAILY 11/16/19 11/16/19 estradiol 0.03 mg tablet (Isibloom) Allergies Allergy/AdvReac Type Severity Reaction Status Date / Time No Known Drug Allergies Allergy Verified 02/06/20 20:28 Review of Systems Constitutional Constitutional: Denies fever(s) Gastrointestinal Gastrointestinal: Reports as per HPI and Reports system reviewed and no additional complaints, except as documented Genitourinary Genitourinary: Reports system reviewed and no additional complaints, except as documented and Reports as per HPI Integumentary/Breasts Skin/Breast: Reports system reviewed and no additional complaints, except as documented Hematologic/Lymphatic On Anticoagulants: No Patient History Medical History (Updated 10/31/21 @ 03:23 by Vinay Martell DO) Anxiety PCOS (polycystic ovarian syndrome) Social History Smoking Status: Never smoker Smoking Status: Never smoker alcohol intake frequency: holidays/special occasions only Substance Use Type: does not use Exam Initial Vital Signs Initial Vital Signs: Vital Signs Temperature 98.4 F 10/31/21 02:24 Pulse Rate 76 10/31/21 02:24 Respiratory Rate 17 10/31/21 02:24 Blood Pressure 118/73 10/31/21 02:24 Pulse Oximetry 99 10/31/21 02:24 [facility] Head: normal to inspection and normocephalic Resp Effort & Inspection: normal respiratory effort Cardio Rate: regular rate GI Inspection: non-distended Palpation: soft and No tender Other: With assurance senior manager insurance at bedside, normal external female genitalia, no lesions. No masses. Patient does have a darker colored vaginal discharge that appears to be consistent with old blood coming from the cervical os. Skin General: no rashes or lesions noted Extrem General: normal to inspection and capillary refill normal Course Orders Ordered: ED Orders 10/31/21 02:25 Urine Culture Stat Urine Microscopic Stat Vital Signs Vital signs: Vital Signs - 8 hr 10/31/21 02:24 Temperature 98.4 F Pulse Rate 76 Respiratory Rate 17 Blood Pressure 118/73 Pulse Oximetry 99 Medical Decision Making Lab Data Labs: Lab Results 10/31/21 Range/Units 02:25 Urine RBC None seen (0-5/HPF) Urine WBC 1-5/hpf (0-5/HPF) Ur Squamous Epith Cells 10-30 /hpf H D (0-5/HPF) Urine Bacteria Moderate (10-30) H (None) Ur Culture Indicated? Culture not indicate Micro UA Comment * Point of Care Testing Test Results Negative Urine Dip Bedside Urine Glucose Negative Bedside Urine Bilirubin - Negative Bedside Urine Ketone - Negative Urine Specific Closter 1.010 Bedside Urine Occult Blood +++ Bedside Urine pH 6 Bedside Urine Protein - Negative Bedside Urine Urobilinogen - Negative Bedside Urine Nitrite - Negative Bedside Urine Leukocytes +/- 15 Esterase Point of care testing: Point of Care Testing Test Results Negative Urine Dip Bedside Urine Glucose Negative Bedside Urine Bilirubin - Negative Bedside Urine Ketone - Negative Urine Specific [place] 1.010 Bedside Urine Occult Blood +++ Bedside Urine pH 6 Bedside Urine Protein - Negative Bedside Urine Urobilinogen - Negative Bedside Urine Nitrite - Negative Bedside Urine Leukocytes +/- 15 Esterase MDM Narrative Medical decision making narrative: Urinalysis does show blood but no other signs of infection. Pelvic exam does show vaginal discharge coming from the cervical os which is consistent with old menstrual blood. There are no other abnormalities noted. I suspect that this is with the patient is noticing when she is wiping. No further workup needed the emergency department. I did discuss this findings with her. She was given return precautions. She expressed understanding and agreement. Discharge Plan Departure Patient Disposition: Home Clinical Impression: Vaginal discharge Activity Restrictions/Additional Instructions: I recommend that you continue to take your control medication as directed. Contact your primary doctor for follow-up and return to the emergency department for any new or worsening symptoms. Prescriptions: No Action desogestrel-ethinyl estradiol [Isibloom] 0.15-0.03 mg tablet 1 tab PO DAILY 0RF
[2021-10-31 02:49] LABS: Bacteria Urine Moderate (10-30); RBC Urine None Seen (0-5/HPF); Squamous Epithelial Cell Urine 10-30 /HPF (0-5/HPF); WBC Urine 1-5/HPF (0-5/HPF)
[2021-10-31 03:26] VITALS: BP 122/85; PULSE 76; RESP 18; O2SAT 98
== END 2021-10-31 03:32 | disposition home or self-care (01) ==
PROVIDERS: Emergency Provider Emergency Medicine
DX: N89.8 Other specified noninflammatory disorders of vagina (principal)
CPT/HCPCS: 81003; 81015; 81025; 87086; 99282